=== PATIENT | male | born 1990 | race Caucasian/White ===

== ENCOUNTER 2016-08-18 10:24 | Day surgery (SDC) | payer BC ==
[~2016-08-18 10:24] MED LIST: Buffered Lidocaine 1% SYR 3ML* 3 ML/SYR SYRINGE INTRADERM ONE
[2016-08-18] MEDS ORDERED: Buffered Lidocaine 1% SYR 3ML* 3 ML/SYR SYRINGE ONE (10:45)
[2016-08-18] MEDS ORDERED: ceFAZolin 2 GM PREMIX (*) 2 GM/50 ML BAG IVPB ONE (10:46)
[2016-08-18] MEDS ORDERED: Midazolam* 1 MG/ML 2 ML VIAL (2 MG) ONE (12:36)
[2016-08-18] MEDS ORDERED: Famotidine IV* 10 MG/ML 2 ML (20 mg) ONE (12:36)
[2016-08-18] MEDS ORDERED: fentaNYL* 50 MCG/ML 2 ML VIAL (100 MCG VIAL) ONE (12:36)
[2016-08-18] MEDS ORDERED: Bupivacaine 0.25% EPI 200,000* 30 ML SDV ONE (13:15)
[2016-08-18] MEDS ORDERED: Ondansetron INJ* 2 MG/ML VIAL IV PRN (13:48)
[2016-08-18] MEDS ORDERED: PROCHLORPERAZINE INJ 5 MG/ML 2 ML VIAL IV PRN (13:48)
[2016-08-18] MEDS ORDERED: fentaNYL* 50 MCG/ML 2 ML VIAL (100 MCG VIAL) IV PRN (13:48)
[2016-08-18] MEDS ORDERED: DiMENhydriNATE IV* 50 MG/ML VIAL IV PUSH PRN (13:48)
[2016-08-18] MEDS ORDERED: oxyCODONE/Acetamin 5/325 MG* TAB PO PRN (13:48)
[2016-08-18] MEDS ORDERED: Lidocaine 2% PF * 5 ML VIAL ONE (13:50)
[2016-08-18] MEDS ORDERED: Propofol* 10 MG/ML 20 ML BTL IV PUSH ONE (13:50)
[2016-08-18] MEDS ORDERED: Dexamethasone IV* 4 MG/ML 1 ML (4 MG) ONE (13:50)
[2016-08-18] MEDS ORDERED: Ketorolac INJ* 30 MG/ML 1 ML VIAL ONE (13:50)
[2016-08-18] MEDS ORDERED: Acetaminophen TAB* 325 MG PO SCH (14:00)
[2016-08-18 15:29] VITALS: BP 110/70
--- NOTE | 2016-08-19 01:59 | OP ---
DATE OF OPERATION: 08/18/16 [facility] DATE OF : 89 SURGEON: Jericho Colvin MD. [employer] CONSULTANT: Brina Mccarty RPA. ANESTHESIOLOGIST: Michael Grace MD ANESTHESIA: General. PRE-OP DIAGNOSIS: Painful hardware, left ankle. POST-OP DIAGNOSIS: Painful hardware, left ankle. OPERATIVE PROCEDURE: Removal of hardware, left ankle. ESTIMATED BLOOD LOSS: Negligible. COMPLICATIONS: None. SUMMARY: Liu is a 26-year-old male who 1 year ago sustained a displaced bimalleolar ankle fracture. He underwent an ORIF and had done well. He has gotten back to all activities and while he has normal range of motion of the left ankle, it is still less than what he can do on the right side and what he had previously. The hardware though is something that bothers him and he is very interested in having that removed. I discussed with him, he has had increased risk for the next few weeks after the hardware is removed for a recurrent ankle fracture and this is where we would splint him initially post- op and then have him with protected weightbearing for the next 4 weeks. Other risks of surgery such as infection, scar formation, DVT, and pulmonary embolism were also discussed and he had wished to proceed. DESCRIPTION OF PROCEDURE: The patient was bought to the OR and LMA was placed. Left ankle was prepped and then draped. Skin over the old scar was infiltrated using 0.25% Marcaine without epinephrine and a small incision was made medially in the center of that medial scar. I thought I could palpate the edge of the screw right in that spot. With just a little bit of blunt dissection, I felt the jose g of the screw and then was able to seat the screw driver salesman, screw came out quite nicely. Wound was irrigated using a using a bulb syringe and closed using 4-0 nylon sutures. Attention was returned laterally. Incision was made directly over the old scar again and I came right down as I could feel the plate under his skin. He was densely scarred down to this and scar was peeled off from the plate as well. Bits of scar were also pulled out from within the screw heads and eventually the screw driver salesman was seated and screws were removed. Periosteal was used to come around the edges of the plate and free the plate, the plate then popped off as well. Dental pick was then used to scrape the screw holes to encourage a healing response. Wound was irrigated with bulb syringe. Subcutaneous tissues were reapproximated with 2-0 Vicryl. Skin was closed using nylon. Sterile dressing and a splint were applied in the OR. The patient had the LMA removed in the OR and was stable on transfer to the recovery room. DISPOSITION/DISCHARGE SUMMARY: Liu is a 26-year-old male who just underwent a removal of hardware from his left ankle. He tolerated the procedure well, there were no complications. He is currently rolling towards the recovery room. Once he wakes a bit more from his general anesthesia, can tolerate p.o., has his pain well controlled and can void, he will be discharged to home. Prescription for Percocet was e-scribed in. He was instructed to keep his dressing clean, dry, and intact for the next 3 days but after that, he may take his dressing down, cover the sutures with Band-Aids, may shower, wash, and get it wet but should not soak it. He should then switch to the boot/CAM walker that he had preciously as he still has that available, and he should use this to avoid turning the ankle, so that he does not facture through the screw holes. I would like to see him back in 10 to 14 days, remove his stitches and will continue him with the boot for a total of 4 weeks. [id number]/[facility] #: [id number] [facility]
== END 2016-08-18 15:30 | disposition home or self-care (01) ==
LOC: OR 10:24
PROVIDERS: ATTEND Orthopaedic Surgery
DX: T84.84XA Pain due to internal orthopedic prosthetic devices, implants and grafts, initial encounter (principal); Y83.1 Surgical operation with implant of artificial internal device as the cause of abnormal reaction of the patient, or of later complication, without mention of misadventure at the time of the procedure; F17.210 Nicotine dependence, cigarettes, uncomplicated
CPT/HCPCS: 88300; J0690; J1100; J1885; J2250; J2704; J3010